=== PATIENT | male | born 1930 | race Caucasian/White ===

== ENCOUNTER 2016-10-17 09:28 | Inpatient (IN) | payer MEDICARE, OTHER ==
[2016-10-17 09:54] LABS: BASOPHILS % 0.2 (0.0-1.5); EOSINOPHILS % 1.4 % (0.0-6.8); LYMPHOCYTES # 1.8 # k/uL (0.6-4.0); MEAN CORPUSCULAR HEMOGLOBIN 31.4 pg (28.0-34.0); MONOCYTES # 0.7 # k/uL (0.0-0.9); MONOCYTES % 6.5 % (0.0-11.0); NEUTROPHILS # 7.5 # k/uL (1.4-7.7)
--- NOTE | 2016-10-17 09:58 | ED Physician Documentation ---
General Adult - HISTORIAN Historian: other - HPI Chief Complaint: General Adult Onset: hours (this AM) Timing: still present Severity: mild Further Comments: yes (86yo white male who is a patient at [facility] Dementia unit. Over the last 12 hours patient has started to have some increasing aggitation, fever and decreased SAo2. into the mid 80s) Last known Well Code/Unknown Code: Known (ye) - ROS CONST: fever CVS/RESP: shortness of breath, cough (mild). denies: chest pain - PAST HX Past History: other (alzheimers dementia) Immunizations: influenza, pneumovax Allergies/Adverse Reactions: Allergies Allergy/AdvReac Type Severity Reaction Status Date / Time No Known Allergies Allergy Verified 11/29/15 09:51 Home Medications: Ambulatory Orders Medication Instructions Recorded Aspirin [Elizabet] 81 mg PO DAILY 10/29/15 Furosemide [Lasix] 20 mg PO DAILY 10/29/15 Memantine HCl [Memantine HCl] 10 mg PO BID 10/29/15 Multivitamin [Zoo Chews] 1 each PO DAILY 10/29/15 Bisacodyl [Women's Gentle Laxative] 5 mg PO BID PRN 11/28/15 Dorzolamide HCl/Timolol Maleat 1 each TP BID 11/28/15 [Dorzolamide-Timolol Eye Drops] Magnesium Hydroxide [Milk of 30 ml PO D PRN 11/28/15 Magnesia] Acetaminophen [Tylenol] 650 mg PO Q4 PRN 10/17/16 Buspirone HCl [Buspar] 10 mg PO BID 10/17/16 Latanoprost [Xalatan] 1 drop OP AM 10/17/16 Mag Hydrox/Al Hydrox/Simeth 30 ml PO D PRN 10/17/16 [Mylanta] Melatonin [Melatin] 3 mg PO HS 10/17/16 - SOCIAL HX Smoking History: non-smoker Alcohol Use: none Drug Use: none - FAMILY HX Family History: Yes - VITAL SIGNS Vital Signs: Vital Signs Temp Pulse Resp BP Pulse Ox 113/46 11/29/15 10:36 - REVIEWED ASSESSMENTS Nursing Assessment Reviewed: Yes Vitals Reviewed: Yes ED Results Lab/Radiology - Orders Orders: ED Orders Category Date Time Status Assess pulse oximetry Q4H Care 10/17/16 09:[address] Saline Lock/IV Now Care 10/17/16 09:43 Ordered CHEST P.A.&LAT 2 VIEWS [RAD] Routine Exams 10/17/16 Ordered CBC/PLATELET/DIFF Routine Lab 10/17/16 Ordered CMP Routine Lab 10/17/16 Ordered URINALYSIS Routine Lab 10/17/16 Ordered Oxygen Daily Oxygen 10/17/16 09:45 Ordered General Adult Physical Exam - PHYSICAL EXAM GENERAL APPEARANCE: mild distress EENT: ENT inspection normal, pharynx normal, no signs of dehydration NECK: normal inspection RESPIRATORY: no resp distress, rales (bilaterally). No: wheezes, rhonchi CVS: reg rate & rhythm, heart sounds normal, equal pulses, no murmur ABDOMEN: soft, no organomegaly, normal bowel sounds, no abdominal bruit SKIN: other (open wounds to the lower extremities bilat) EXTREMITIES: edema NEURO: motor nml, sensation nml. No: oriented X3, CN's nml as tested, mood/ affect nml, cognition normal Discharge Clincal Impression: Congestive heart failure (CHF), Urinary tract infection, Open wound of knee, leg (except thigh), and ankle Home Medications: Ambulatory Orders Aspirin [Elizabet] 81 mg PO DAILY 10/29/15 Furosemide [Lasix] 20 mg PO DAILY 10/29/15 Memantine HCl [Memantine HCl] 10 mg PO BID 10/29/15 Multivitamin [Zoo Chews] 1 each PO DAILY 10/29/15 Bisacodyl [Women's Gentle Laxative] 5 mg PO BID PRN 11/28/15 Dorzolamide HCl/Timolol Maleat [Dorzolamide-Timolol Eye Drops] 1 each TP BID Magnesium Hydroxide [Milk of Magnesia] 30 ml PO D PRN 11/28/15 Acetaminophen [Tylenol] 650 mg PO Q4 PRN 10/17/16 Buspirone HCl [Buspar] 10 mg PO BID 10/17/16 Latanoprost [Xalatan] 1 drop OP AM 10/17/16 Mag Hydrox/Al Hydrox/Simeth [Mylanta] 30 ml PO D PRN 10/17/16 Melatonin [Melatin] 3 mg PO HS 10/17/16 Condition: Fair Disposition: 09 ADMITTED INPATIENT Decision to Admit: [id number] Date of Decison to Admit: 10/17/16 Decision Time: 11:23
[2016-10-17 10:11] LABS: eGFR (African) > 60; eGFR (Non-African) > 60
[2016-10-17] MEDS ORDERED: LORazepam 2 MG/ML VIAL IVP ONE (10:23)
[2016-10-17] MEDS ORDERED: LORazepam 2 MG/ML VIAL ONE (10:24)
[2016-10-17 11:10] LABS: APPEARANCE,URINE Cloudy (CLEAR); COLOR,URINE Yellow (YELLOW); OCCULT BLOOD,URINE 1+ (NEGATIVE); PH URINE 6.5 (5.0 - 8.0); UROBILINOGEN URINE >=8.0 Eu (0.2-1.0)
[2016-10-17] MEDS ORDERED: ACETAMINOPHEN 325 MG TABLET PO PRN (11:58)
[2016-10-17] MEDS ORDERED: MAG HYDROX/AL HYDROX/SIMETH 30 ML UDC PO PRN (11:58)
[2016-10-17] MEDS ORDERED: MAGNESIUM HYDROXIDE 400 MG/5 ML 30ML UDC PO PRN (11:58)
[2016-10-17] MEDS ORDERED: BISACODYL 5 MG TABLET.DR PO PRN (11:58)
[2016-10-17] MEDS ORDERED: FUROSEMIDE 40 MG/4 ML VIAL IVP ONE (12:06)
[2016-10-17] MEDS ORDERED: CIPROFLOXACIN/D5W 200 ML IV ONE (13:45)
[2016-10-17] MEDS ORDERED: SALINE FLUSH 10 ML DISP.SYRIN IVF ONE (13:48)
[2016-10-17] MEDS: CIPROFLOXACIN/D5W 400 MG in PREMIX BAG 1 BAG IV SCH (13:53)
[2016-10-17] MEDS: ENOXAPARIN SODIUM 30 MG/0.3 ML DISP.SYRIN SQ SCH (13:59)
--- NOTE | 2016-10-17 14:12 | Diagnostic Imaging Report ---
[facility] [address] [facility].[address] [address] Report Submission Date: Oct 17, 2016 11:59:30 AM WO[employer]EN [employer] HARD[employer] INST[employer]ER Patient Study Name: CINDY WORTHINGTON Date: Oct 17, 2016 10:01:18 AM [employer] INSTALLER Modality Type: CR Gender: M Description: CHEST : 31 Institution: [facility] Physician: KATYA RILEY Chest - one-view Clinical history: Chest congestion. Findings: Examination of the chest single portable AP view 10/17/2016 1001 hours with comparison to examination of 11/28/2015 demonstrates pulmonary vascular congestion with perivascular and peribronchial cuffing. Cardiac silhouette is enlarged and the aorta is atherosclerotic. There is old healed right clavicular fracture. Impression: 1. Pulmonary vascular congestion. 2. Cardiomegaly and aortic atherosclerosis. Electronically signed on Oct 17, 2016 11:59:30 AM [employer] HARDWARE INSTALLER by: Nakul GANDHI
[2016-10-17 14:51] VITALS: BMI 24.4
[2016-10-17] MEDS: FUROSEMIDE 40 MG/4 ML VIAL IVP SCH (15:17)
[2016-10-17] MEDS: DORZOLAMINE HCL/TIMOLOL MALEAT OPTH DROP OP SCH (20:03)
[2016-10-17] MEDS: MELATONIN 3 MG TABLET PO SCH (20:03)
[2016-10-17] MEDS: MEMANTINE HCL 10 MG TABLET PO SCH (20:03)
[2016-10-18] MEDS ORDERED: SALINE FLUSH 10 ML DISP.SYRIN IVF ONE ×3 (04:41→16:12)
[2016-10-18] MEDS: FUROSEMIDE 40 MG/4 ML VIAL IVP SCH ×2 (06:28→16:00)
[2016-10-18 06:33] LABS: BASOPHILS % 0.3 (0.0-1.5); EOSINOPHILS % 0.8 % (0.0-6.8); LYMPHOCYTES # 1.7 # k/uL (0.6-4.0); MEAN CORPUSCULAR HEMOGLOBIN 30.8 pg (28.0-34.0); MONOCYTES # 0.5 # k/uL (0.0-0.9); MONOCYTES % 4.6 % (0.0-11.0)
[2016-10-18 06:50] LABS: eGFR (African) > 60; eGFR (Non-African) > 60
[2016-10-18] MEDS ORDERED: LORazepam 0.5 MG TABLET PO PRN (09:02)
--- NOTE | 2016-10-18 09:13 | History and Physical Report ---
History of Present Illnes - History of Present Illness Reason for Visit: Fever, hypoxia History of Present Illness: 86yo white male who is a patient at [facility] Dementia unit. Over the last 12 hours patient has started to have some increasing aggitation, fever and decreased SAo2. into the mid 80s. Patient was brought to the ED for further evaluation and treatment. Patient was found to have some congestive heart failure and a UTI. He is admitted for further evaluation and treatment. 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 negative: Cough, Pleuritic Pain, Sputum Cardiovascular: negative: Chest Pain, Palpitations Gastrointestinal: negative: Nausea, Vomiting, Abdominal Pain, Diarrhea, Constipation, Melena, Hematochezia Genitourinary: Incontinence. negative: Dysuria, Frequency, Hematuria Musculoskeletal: Back Pain Skin: Other (open wounds legs). negative: Rash Neurological: Confusion. negative: Weakness, Numbness, Incoordination - Medications/Allergies Allergies/Adverse Reactions: Allergies Allergy/AdvReac Type Severity Reaction Status Date / Time No Known Allergies Allergy Verified 11/29/15 09:51 Home Medications: Home Medications Acetaminophen [Tylenol] 650 mg PO Q4 PRN 10/17/16 Buspirone HCl [Buspar] 10 mg PO BID 10/17/16 Latanoprost [Xalatan] 1 drop OP AM 10/17/16 Mag Hydrox/Al Hydrox/Simeth [Mylanta] 30 ml PO D PRN 10/17/16 Melatonin [Melatin] 3 mg PO HS 10/17/16 Current Inpatient Medications: Current Inpatient Medications Acetaminophen (Tylenol) 650 mg PO Q4 PRN PRN Reason: Fever > 102 Al Hydrox/Mg Hydrox/Simethicone (Mylanta) 30 ml PO D PRN PRN Reason: indigestion Al Hydroxide/Mg Hydroxide (Milk Of Magnesia) 2,400 mg PO D PRN PRN Reason: Constipation Aspirin (Aspirin) 81 mg PO DAILY [facility] Bisacodyl (Dulcolax) 5 mg PO BID PRN PRN Reason: Constipation Dorzolamide/Timolol (Cosopt Eye Drops) 1 drop OP BID [facility] Last Admin: 10/17/16 20:03 Dose: 1 drop Enoxaparin Sodium (Lovenox) 30 mg SQ QD [facility] Stop: 10/30/16 12:01 Last Admin: 10/17/16 13:59 Dose: 30 mg Furosemide (Lasix) 40 mg IVP 714 [facility] Last Admin: 10/18/16 06:28 Dose: 40 mg Ciprofloxacin/Dextrose 400 mg/ (PREMIX BAG) 200 mls @ 200 mls/hr IV QD [facility] Last Admin: 10/17/16 13:53 Dose: 200 mls/hr Latanoprost (Xalatan) 1 drop OP AM [facility] Lorazepam (Ativan) 0.5 mg PO Q4H PRN PRN Reason: Anxiety Melatonin (Melatonin) 3 mg PO HS [facility] Last Admin: 10/17/16 20:03 Dose: 3 mg Memantine (Namenda) 10 mg PO BID [facility] Last Admin: 10/17/16 20:03 Dose: 10 mg Multivitamins (Tab-A-Wilfrido) 1 each PO DAILY [facility] Potassium Chloride (Klor-Con M20) 20 meq PO BID [facility] Exam - Exam Vital Signs: Vital Signs (72 hours) 10/17/16 10/17/16 10/17/16 12:12 12:15 13:44 Temperature 97.7 F 97.7 F Pulse Rate [ 93 H Left Pulse ox] Pulse Rate [ 109 H Right] Respiratory 18 28 H Rate Blood Pressure 157/78 [Left Arm] Blood Pressure 175/56 [Right Arm] O2 Sat by Pulse 93 90 L 92 Oximetry 10/17/16 10/17/16 10/17/16 14:00 17:00 18:00 Temperature 100.9 F H 100.4 F H Pulse Rate [ Left Pulse ox] Pulse Rate [ 114 H 114 H Right] Respiratory 28 H 28 H Rate Blood Pressure [Left Arm] Blood Pressure 140/82 141/71 [Right Arm] O2 Sat by Pulse 91 L 91 L 92 Oximetry 10/17/16 10/17/16 10/17/16 20:00 21:38 22:00 Temperature 99.6 F Pulse Rate [ 91 H 90 Left Pulse ox] Pulse Rate [ Right] Respiratory 20 Rate Blood Pressure [Left Arm] Blood Pressure 150/70 [Right Arm] O2 Sat by Pulse 91 L 90 L Oximetry 10/18/16 10/18/16 10/18/16 02:00 05:49 06:00 Temperature 99.0 F 98.8 F Pulse Rate [ 94 H 102 H Left Pulse ox] Pulse Rate [ Right] Respiratory Rate Blood Pressure [Left Arm] Blood Pressure 146/70 133/64 [Right Arm] O2 Sat by Pulse 92 91 L 92 Oximetry General: Mild distress. No: Alert, Oriented to Person, Oriented to Place, Oriented to Time, Cooperative HEENT: Atraumatic, Mouth Mucous membr. moist/[place], Decreased Hearing Acuity. No : Pharyngeal Erythema, Tonsillar Exudate Neck: Normal Range of Motion. No: Stridor, Rigidity, Lymphadenopathy Carotids: WNL Thyroid: WNL Lungs: Respiratory Distress, Wheezes (bilaterally), Rales (in bases) Cardiovascular: Regular rate, Normal S1, Normal S2, No murmurs. No: Gallops, Rubs Abdomen: Normal bowel sounds, Soft, No tenderness, No hepatospenomegaly, No masses. No: Distended Integumentary: Normal, [place], Warm, Dry, Other (superficial ulceration to the legs bilat ) Extremities: No clubbing, No cyanosis, Normal pulses, Other (some mild swelling to the legs bialterally) Neurological: Strength Equal Bilat, Normal tone, Sensation intact, Cranial nerves 3-12 NL, Reflexes 2+ Psych/Mental Status: No: Mental status NL, Mood NL, Appropriate Affect, Intact Judgment - Laboratory Results Laboratory Results: Laboratory Results 10/18/16 10/18/16 06:15 06:15 WBC 11.50 RBC 4.58 Hgb 14.1 Hct 43.5 MCV 95.1 MCH 30.8 MCHC 32.4 RDW 12.7 Plt Count 264 Neut % (Auto) 78.1 Lymph % (Auto) 14.7 L [place] % (Auto) 4.6 Eos % (Auto) 0.8 Baso % (Auto) 0.3 Neut # 9.0 H Lymph # 1.7 [place] # 0.5 Eos # 0.1 Baso # 0.0 Reactive Lymphs % 1.5 Reactive Lymphs # 0.2 Sodium 140 Potassium 3.0 L Chloride 96 L Carbon Dioxide 32 BUN 17 Creatinine 0.7 Estimated Creat Clear 91 Est GFR ( Amer) > 60 Est GFR (Non-Af Amer) > 60 Glucose 143 H Calcium 9.4 Total Bilirubin 1.5 H AST 30 ALT 17 Alkaline Phosphatase 132 H Total Protein 7.3 Albumin 3.9 Assessment/Plan - Assessment/Plan (1) Congestive heart failure Status: Acute Assessment: Will start IV Lasix and monitor respiratory status, weight, get serial troponins (2) Elevated troponin Status: Acute Assessment: Possible AMI, no EKG changes (3) Urinary tract infection Status: Acute Assessment: Start IV antibiotic therapy VTE Assessment - RISK FACTOR SCORE VTE RISK FACTOR SCORES: AGE OVER 60 YEARS, ANTICIPATED BED CONFINEMENT OR IMMOBILIZATION > 24 HOURS, CONGESTIVE HEART FAILURE OR MYOCARDIAL INFARCTION - RISK VTE HIGH RISK: SCORE OF 3-4 (RISK PROXIMAL DVT 4-8%) PROPHYLAXIS NEEDED
--- NOTE | 2016-10-18 09:13 | Inpatient Progress Note ---
Subjective - Required Recertification Statement I anticipate X number of days because-include discharge plan: 2 days - Review of Systems Events since last encounter: Patient seems to be more combative today. Still having some mild respiratory distress but is improved. Pt has had good diuresis. Pulmonary: Dyspnea, Cough Gastrointestinal: Denies: Nausea, Vomiting Genitourinary: Denies: Dysuria, Frequency Objective - Exam Vitals and I&O: Vital Signs Temp 98.8 F 10/18/16 06:00 Pulse 102 H 10/18/16 06:00 Resp 20 10/17/16 20:00 BP 133/64 10/18/16 06:00 Pulse Ox 92 10/18/16 06:00 Intake & Output 10/17/16 10/17/16 10/18/16 11:59 23:59 11:59 Intake Total 200 Balance 200 Weight 83.915 kg Intake: IV 200 Left AC Space 200 Other: Voiding Method Diaper # Voids 1 3 # Bowel Movements 1 General: Alert. No: Oriented to Person, Oriented to Place, Oriented to Time, Cooperative Neck: No: Supple, No JVD Lungs: Normal air movement, Wheezes (mild bsilar). No: Rales, Rhonchi Cardiovascular: Regular rate, Normal S1, Normal S2, No murmurs, Other Abdomen: Normal bowel sounds, Soft, No tenderness, No hepatospenomegaly - Results Results: Laboratory Results WBC 11.50 K/ul (4.00-12.00) 10/18/16 06:15 RBC 4.58 M/ul (3.90-5.20) 10/18/16 06:15 Hgb 14.1 g/dL (12.0-18.0) 10/18/16 06:15 Hct 43.5 % (37.0-53.0) 10/18/16 06:15 MCV 95.1 fl (80.0-100.0) 10/18/16 06:15 MCH 30.8 pg (28.0-34.0) 10/18/16 06:15 MCHC 32.4 g/dL (30.0-36.0) 10/18/16 06:15 RDW 12.7 % (11.3-14.3) 10/18/16 06:15 Plt Count 264 K/mm3 (130-400) 10/18/16 06:15 Neut % (Auto) 78.1 % (39.0-79.0) 10/18/16 06:15 Lymph % (Auto) 14.7 % (16.0-50.0) L 10/18/16 06:15 [place] % (Auto) 4.6 % (0.0-11.0) 10/18/16 06:15 Eos % (Auto) 0.8 % (0.0-6.8) 10/18/16 06:15 Baso % (Auto) 0.3 (0.0-1.5) 10/18/16 06:15 Neut # 9.0 # k/uL (1.4-7.7) H 10/18/16 06:15 Lymph # 1.7 # k/uL (0.6-4.0) 10/18/16 06:15 [place] # 0.5 # k/uL (0.0-0.9) 10/18/16 06:15 Eos # 0.1 # k/uL (0.0-0.6) 10/18/16 06:15 Baso # 0.0 # k/uL (0.0-0.5) 10/18/16 06:15 Reactive Lymphs % 1.5 % (0.0-5.0) 10/18/16 06:15 Reactive Lymphs # 0.2 # k/uL (0.0-0.8) 10/18/16 06:15 Sodium 140 mmol/L (136-145) 10/18/16 06:15 Potassium 3.0 mmol/L (3.5-5.0) L 10/18/16 06:15 Chloride 96 mmol/L (98-110) L 10/18/16 06:15 Carbon Dioxide 32 mmol/L (20-32) 10/18/16 06:15 BUN 17 mg/dL (10-26) 10/18/16 06:15 Creatinine 0.7 mg/dL (0.4-1.5) 10/18/16 06:15 Estimated Creat Clear 91 10/18/16 06:15 Est GFR ( Amer) > 60 (60-) 10/18/16 06:15 Est GFR (Non-Af Amer) > 60 (60-) 10/18/16 06:15 Glucose 143 mg/dL (70-99) H 10/18/16 06:15 Calcium 9.4 mg/dL (8.5-10.5) 10/18/16 06:15 Total Bilirubin 1.5 mg/dL (0.2-1.2) H 10/18/16 06:15 AST 30 U/L (0-41) 10/18/16 06:15 ALT 17 U/L (0-45) 10/18/16 06:15 Alkaline Phosphatase 132 U/L (46-116) H 10/18/16 06:15 Troponin I 0.25 ng/mL (0.00-0.06) H 10/17/16 09:50 NT-Pro-B Natriuret Pep 1962.3 pg/mL (15.0-450.0) H 10/17/16 09:50 Total Protein 7.3 g/dL (6.0-8.5) 10/18/16 06:15 Albumin 3.9 g/dL (3.0-5.5) 10/18/16 06:15 Urine Color Yellow (YELLOW) 10/17/16 11:05 Urine Appearance Cloudy (CLEAR) 10/17/16 11:05 Urine pH 6.5 (5.0 - 8.0) 10/17/16 11:05 Ur Specific [place] 1.020 (1.010-1.030) 10/17/16 11:05 Urine Protein 1+ mg/dL (NEGATIVE) H 10/17/16 11:05 Urine Ketones Trace mg/dL (NEGATIVE) 10/17/16 11:05 Urine Occult Blood 1+ (NEGATIVE) H 10/17/16 11:05 Urine Nitrite Negative (NEGATIVE) 10/17/16 11:05 Urine Bilirubin 1+ (NEGATIVE) H 10/17/16 11:05 Urine Urobilinogen >=8.0 Eu (0.2-1.0) H 10/17/16 11:05 Ur Leukocyte Esterase 2+ (NEGATIVE) H 10/17/16 11:05 Urine RBC 0-2 (0-2 HPF) 10/17/16 11:05 Urine WBC 25-50 (0-5 HPF) H 10/17/16 11:05 Ur Squamous Epith Cells Few (NEG-FEW) 10/17/16 11:05 Urine Bacteria Few (NEGATIVE) H 10/17/16 11:05 Urine Mucus Present (NEGATIVE) H 10/17/16 11:05 Urine Glucose Negative mg/dL (NEGATIVE) 10/17/16 11:05 Influenza Type A Ag Negative (NEGATIVE) 10/17/16 10:50 Influenza Type B Ag Negative (NEGATIVE) 10/17/16 10:50 Assessment/Plan - Assessment/Plan (1) Congestive heart failure (CHF) Status: Acute Assessment: Appears improved, will continue with iV lasix at this time (2) Elevated troponin Status: Acute Assessment: Will recheck this AM, heart monitor stable (3) Open wound of knee, leg (except thigh), and ankle Status: Acute Assessment: Continue with dressing (4) Urinary tract infection Status: Acute Assessment: awaiting cultur reports, will continue with Cipro (5) Hypokalemia Status: Acute Assessment: Will start supplemental potassium
[2016-10-18] MEDS: MULTIVITAMIN 1 EACH TABLET PO SCH (09:24)
[2016-10-18] MEDS: ASPIRIN 81 MG CHEW TAB PO SCH (09:24)
[2016-10-18] MEDS: DORZOLAMINE HCL/TIMOLOL MALEAT OPTH DROP OP SCH ×2 (09:24→20:29)
[2016-10-18] MEDS: MEMANTINE HCL 10 MG TABLET PO SCH ×2 (09:24→20:23)
[2016-10-18] MEDS: LATANOPROST 0.005% OPTH DROP OP SCH (09:24)
[2016-10-18] MEDS: POTASSIUM CHLORIDE 20 MEQ TABLET.ER PO SCH ×2 (10:31→20:23)
[2016-10-18] MEDS ORDERED: CIPROFLOXACIN/D5W 200 ML IV ONE (11:40)
[2016-10-18] MEDS: ENOXAPARIN SODIUM 30 MG/0.3 ML DISP.SYRIN SQ SCH (12:19)
[2016-10-18] MEDS: CIPROFLOXACIN/D5W 400 MG in PREMIX BAG 1 BAG IV SCH (12:19)
[2016-10-18] MEDS: MELATONIN 3 MG TABLET PO SCH (20:23)
[2016-10-19] MEDS ORDERED: SALINE FLUSH 10 ML DISP.SYRIN IVF ONE ×4 (05:51→15:55)
[2016-10-19] MEDS: POTASSIUM CHLORIDE 20 MEQ TABLET.ER PO SCH ×3 (06:51→19:39)
[2016-10-19] MEDS: FUROSEMIDE 40 MG/4 ML VIAL IVP SCH ×2 (06:52→13:40)
--- NOTE | 2016-10-19 07:36 | Inpatient Progress Note ---
Subjective - Required Recertification Statement I anticipate X number of days because-include discharge plan: 1 - Review of Systems Events since last encounter: Patient seems to be doing better today. Breathing is better. Patient was more combative yesterday but was better last noc. Mental status seems to be at baseline. General: Denies: Chills, Night Sweats Pulmonary: Denies: Dyspnea, Cough, Pleuritic Chest Pain Cardiovascular: Denies: Palpitations Objective - Exam Vitals and I&O: Vital Signs Temp 97 F L 10/19/16 06:00 Pulse 95 H 10/19/16 06:00 Resp 18 10/19/16 06:00 BP 130/71 10/19/16 06:00 Pulse Ox 94 10/19/16 06:00 Intake & Output 10/18/16 10/18/16 10/19/16 11:59 23:59 11:59 Intake Total 320 500 Balance 320 500 Weight 83.915 kg Intake: Oral 320 500 Other: Voiding Method Diaper Diaper # Voids 3 2 1 General: No acute distress. No: Alert, Oriented to Person, Oriented to Place, Oriented to Time Neck: Supple, No JVD, No LAD Lungs: Clear to auscultation, Normal air movement, Speaks full Sentences, Respiratory Distress. No: Wheezes, Rales, Rhonchi Cardiovascular: Regular rate, Normal S1, Normal S2, No murmurs. No: Gallops Abdomen: Normal bowel sounds, Soft, No tenderness, No hepatospenomegaly Extremities: No clubbing, Other (wounds are improved some) Skin: Normal, [place], Warm, Dry, Other (leg lesions look better) Neurological: Strength Equal Bilat, Normal tone Psych/Mental Status: No: Mental status NL, Mood NL, Intact Judgment - Results Results: Laboratory Results WBC 11.50 K/ul (4.00-12.00) 10/18/16 06:15 RBC 4.58 M/ul (3.90-5.20) 10/18/16 06:15 Hgb 14.1 g/dL (12.0-18.0) 10/18/16 06:15 Hct 43.5 % (37.0-53.0) 10/18/16 06:15 MCV 95.1 fl (80.0-100.0) 10/18/16 06:15 MCH 30.8 pg (28.0-34.0) 10/18/16 06:15 MCHC 32.4 g/dL (30.0-36.0) 10/18/16 06:15 RDW 12.7 % (11.3-14.3) 10/18/16 06:15 Plt Count 264 K/mm3 (130-400) 10/18/16 06:15 Neut % (Auto) 78.1 % (39.0-79.0) 10/18/16 06:15 Lymph % (Auto) 14.7 % (16.0-50.0) L 10/18/16 06:15 [place] % (Auto) 4.6 % (0.0-11.0) 10/18/16 06:15 Eos % (Auto) 0.8 % (0.0-6.8) 10/18/16 06:15 Baso % (Auto) 0.3 (0.0-1.5) 10/18/16 06:15 Neut # 9.0 # k/uL (1.4-7.7) H 10/18/16 06:15 Lymph # 1.7 # k/uL (0.6-4.0) 10/18/16 06:15 [place] # 0.5 # k/uL (0.0-0.9) 10/18/16 06:15 Eos # 0.1 # k/uL (0.0-0.6) 10/18/16 06:15 Baso # 0.0 # k/uL (0.0-0.5) 10/18/16 06:15 Reactive Lymphs % 1.5 % (0.0-5.0) 10/18/16 06:15 Reactive Lymphs # 0.2 # k/uL (0.0-0.8) 10/18/16 06:15 Sodium 140 mmol/L (136-145) 10/18/16 06:15 Potassium 3.0 mmol/L (3.5-5.0) L 10/18/16 06:15 Chloride 96 mmol/L (98-110) L 10/18/16 06:15 Carbon Dioxide 32 mmol/L (20-32) 10/18/16 06:15 BUN 17 mg/dL (10-26) 10/18/16 06:15 Creatinine 0.7 mg/dL (0.4-1.5) 10/18/16 06:15 Estimated Creat Clear 91 10/18/16 06:15 Est GFR ( Amer) > 60 (60-) 10/18/16 06:15 Est GFR (Non-Af Amer) > 60 (60-) 10/18/16 06:15 Glucose 143 mg/dL (70-99) H 10/18/16 06:15 Calcium 9.4 mg/dL (8.5-10.5) 10/18/16 06:15 Total Bilirubin 1.5 mg/dL (0.2-1.2) H 10/18/16 06:15 AST 30 U/L (0-41) 10/18/16 06:15 ALT 17 U/L (0-45) 10/18/16 06:15 Alkaline Phosphatase 132 U/L (46-116) H 10/18/16 06:15 Troponin I 0.15 ng/mL (0.00-0.06) H 10/18/16 06:15 NT-Pro-B Natriuret Pep 1962.3 pg/mL (15.0-450.0) H 10/17/16 09:50 Total Protein 7.3 g/dL (6.0-8.5) 10/18/16 06:15 Albumin 3.9 g/dL (3.0-5.5) 10/18/16 06:15 Urine Color Yellow (YELLOW) 10/17/16 11:05 Urine Appearance Cloudy (CLEAR) 10/17/16 11:05 Urine pH 6.5 (5.0 - 8.0) 10/17/16 11:05 Ur Specific [place] 1.020 (1.010-1.030) 10/17/16 11:05 Urine Protein 1+ mg/dL (NEGATIVE) H 10/17/16 11:05 Urine Ketones Trace mg/dL (NEGATIVE) 10/17/16 11:05 Urine Occult Blood 1+ (NEGATIVE) H 10/17/16 11:05 Urine Nitrite Negative (NEGATIVE) 10/17/16 11:05 Urine Bilirubin 1+ (NEGATIVE) H 10/17/16 11:05 Urine Urobilinogen >=8.0 Eu (0.2-1.0) H 10/17/16 11:05 Ur Leukocyte Esterase 2+ (NEGATIVE) H 10/17/16 11:05 Urine RBC 0-2 (0-2 HPF) 10/17/16 11:05 Urine WBC 25-50 (0-5 HPF) H 10/17/16 11:05 Ur Squamous Epith Cells Few (NEG-FEW) 10/17/16 11:05 Urine Bacteria Few (NEGATIVE) H 10/17/16 11:05 Urine Mucus Present (NEGATIVE) H 10/17/16 11:05 Urine Glucose Negative mg/dL (NEGATIVE) 10/17/16 11:05 Influenza Type A Ag Negative (NEGATIVE) 10/17/16 10:50 Influenza Type B Ag Negative (NEGATIVE) 10/17/16 10:50 Assessment/Plan - Assessment/Plan (1) Congestive heart failure Status: Acute Assessment: Appears to be doing better today, lungs clearer, will get repeat chest x-ray. (2) Urinary tract infection Status: Acute Assessment: under treatment with cipro, awaiting culture report (3) Elevated troponin Status: Acute Assessment: Improved today, patient may have had a small AMI
[2016-10-19 08:17] LABS: BASOPHILS % 0.2 (0.0-1.5); EOSINOPHILS % 1.9 % (0.0-6.8); LYMPHOCYTES # 1.5 # k/uL (0.6-4.0); MEAN CORPUSCULAR HEMOGLOBIN 31.1 pg (28.0-34.0); MONOCYTES # 0.6 # k/uL (0.0-0.9); MONOCYTES % 4.5 % (0.0-11.0); NEUTROPHILS # 10.3 # k/uL (1.4-7.7)
[2016-10-19 08:31] LABS: eGFR (African) > 60; eGFR (Non-African) > 60
[2016-10-19] MEDS: MULTIVITAMIN 1 EACH TABLET PO SCH (09:00)
[2016-10-19] MEDS: MEMANTINE HCL 10 MG TABLET PO SCH ×2 (09:00→19:39)
[2016-10-19] MEDS: DORZOLAMINE HCL/TIMOLOL MALEAT OPTH DROP OP SCH ×2 (09:00→19:40)
[2016-10-19] MEDS: LATANOPROST 0.005% OPTH DROP OP SCH (09:01)
[2016-10-19] MEDS: ASPIRIN 81 MG CHEW TAB PO SCH (09:01)
[2016-10-19] MEDS: LORazepam 1 MG TABLET PO SCH ×7 (09:02→23:58)
[2016-10-19] MEDS ORDERED: CIPROFLOXACIN/D5W 200 ML IV ONE (12:15)
[2016-10-19] MEDS: ENOXAPARIN SODIUM 30 MG/0.3 ML DISP.SYRIN SQ SCH (12:20)
[2016-10-19] MEDS: CIPROFLOXACIN/D5W 400 MG in PREMIX BAG 1 BAG IV SCH (12:20)
[2016-10-19] MEDS ORDERED: AZITHROMYCIN 500 MG in 0.9 % SODIUM CHLORIDE 250 ML IV SCH (13:00)
[2016-10-19] MEDS ORDERED: 0.9 % SODIUM CHLORIDE 250 ML IV ONE (13:20)
[2016-10-19] MEDS ORDERED: AZITHROMYCIN 500 MG VIAL IV ONE (13:20)
[2016-10-19] MEDS: MELATONIN 3 MG TABLET PO SCH (19:39)
--- NOTE | 2016-10-19 19:39 | Diagnostic Imaging Report ---
[facility] [id number] [facility] [address], [place]. [address] Report Submission Date: Oct 19, 2016 9:49:07 AM RECEPTIONIST NURSE Patient Study Name: CINDY WORTHINGTON Date: Oct 19, 2016 8:12:24 AM RECEPTIONIST NURSE Modality Type: CR Gender: M Description: CHEST : 32 Institution: [facility] Physician S[facility]/MED SURG Portable upright radiograph of the chest COMPARISON: Dyspnea congestive heart failure 2 days earlier FINDINGS: The right upper lobe infiltrate is increased. The pulmonary vascular congestion and pulmonary edema have improved. Cardiomegaly is about the same. The bony thorax is stable. IMPRESSION: Improved congestive heart failure and pulmonary edema More focal consolidation involving the right upper lobe Electronically signed on Oct 19, 2016 9:49:07 AM RECEPTIONIST NURSE by: Slava GANDHI
[2016-10-20] MEDS: LORazepam 1 MG TABLET PO SCH ×3 (02:43→08:48)
[2016-10-20] MEDS ORDERED: SALINE FLUSH 10 ML DISP.SYRIN IVF ONE (04:46)
[2016-10-20] MEDS: FUROSEMIDE 40 MG/4 ML VIAL IVP SCH (06:29)
[2016-10-20] MEDS: POTASSIUM CHLORIDE 20 MEQ TABLET.ER PO SCH (08:48)
[2016-10-20] MEDS: MULTIVITAMIN 1 EACH TABLET PO SCH (08:48)
[2016-10-20] MEDS: DORZOLAMINE HCL/TIMOLOL MALEAT OPTH DROP OP SCH (08:49)
[2016-10-20] MEDS: MEMANTINE HCL 10 MG TABLET PO SCH (08:49)
[2016-10-20] MEDS: ASPIRIN 81 MG CHEW TAB PO SCH (08:49)
[2016-10-20] MEDS: LATANOPROST 0.005% OPTH DROP OP SCH (08:49)
[2016-10-20] MEDS ORDERED: LEVOFLOXACIN 500 MG TABLET PO SCH (09:00)
[2016-10-20 09:23] VITALS: BP 136/59
[2016-10-20 09:52] LABS: BASOPHILS % 0.2 (0.0-1.5); EOSINOPHILS % 3.1 % (0.0-6.8); LYMPHOCYTES # 1.6 # k/uL (0.6-4.0); MEAN CORPUSCULAR HEMOGLOBIN 30.3 pg (28.0-34.0); MONOCYTES # 0.5 # k/uL (0.0-0.9); MONOCYTES % 3.9 % (0.0-11.0); NEUTROPHILS # 9.1 # k/uL (1.4-7.7)
[2016-10-20] MEDS: ENOXAPARIN SODIUM 30 MG/0.3 ML DISP.SYRIN SQ SCH (11:24)
--- NOTE | 2016-10-21 17:00 | Discharge Summary ---
Discharge Summary - Discharge Sumary History of Present Illness: 86yo white male who is a patient at [facility] Dementia unit. Over the last 12 hours patient has started to have some increasing aggitation, fever and decreased SAo2. into the mid 80s. Patient was brought to the ED for further evaluation and treatment. Patient was found to have some congestive heart failure and a UTI. He is admitted for further evaluation and treatment. Home Medications: Ambulatory Orders Medication Instructions Recorded Aspirin [Elizabet] 81 mg PO DAILY 10/29/15 Memantine HCl 10 mg PO BID 10/29/15 Multivitamin [Zoo Chews] 1 each PO DAILY 10/29/15 Bisacodyl [Women's Gentle Laxative] 5 mg PO BID PRN 11/28/15 Dorzolamide HCl/Timolol Maleat 1 each TP BID 11/28/15 [Dorzolamide-Timolol Eye Drops] Magnesium Hydroxide [Milk of 30 ml PO D PRN 11/28/15 Magnesia] Acetaminophen [Tylenol] 650 mg PO Q4 PRN 10/17/16 Buspirone HCl [Buspar] 10 mg PO BID 10/17/16 Latanoprost [Xalatan] 1 drop OP AM 10/17/16 Mag Hydrox/Al Hydrox/Simeth 30 ml PO D PRN 10/17/16 [Mylanta] Melatonin [Melatin] 3 mg PO HS 10/17/16 Azithromycin [Zithromax] 250 mg PO DAILY #4 tablet 10/20/16 Furosemide [Lasix] 40 mg PO DAILY #0 10/20/16 Levofloxacin [Levaquin] 500 mg PO D #7 tablet 10/20/16 Potassium Chloride [Klor-Con M20] 20 meq PO D tablet.er 10/20/16 Consultations this Visit: None Procedures this Visit: None Allergies/Adverse Reactions: Allergies Allergy/AdvReac Type Severity Reaction Status Date / Time No Known Allergies Allergy Verified 11/29/15 09:51 - Final Diagnosis (1) Congestive heart failure Problems: improved. We'll monitor weight.Family does not want to get an ECHO at this time. (2) Elevated troponin Problems: Has improved, probable small AL, will start with ASA and betablocker. (3) Urinary tract infection Problems: Improved with antibiotics (4) Pedal edema Problems: improved (5) open wound legs without complication Problems: bilateral improved with decreased edema
== END 2016-10-20 12:30 | DRG 292 ==
LOC: ED 09:28 → SOUTH 11:35 → UNDOADMIN 11:35
PROVIDERS: ADMIT Family Medicine; ATTEND Family Medicine
DX: I50.9 Heart failure, unspecified (principal); N39.0 Urinary tract infection, site not specified; R60.0 Localized edema; S81.802A Unspecified open wound, left lower leg, initial encounter; S81.801A Unspecified open wound, right lower leg, initial encounter
CPT/HCPCS: 36415; 51701; 71010; 80048; 80053; 81002; 83880; 84484; 85025; 87040; 87088; 87186; 87400; 93005; A9270; J0456; J0744; J1650; J1940; J2060; J7050; 99222; 99232; 99238; S1016

== ENCOUNTER 2016-12-17 10:24 | Inpatient (IN) | payer MEDICARE, BC ==
[2016-12-17] MEDS ORDERED: 0.9 % SODIUM CHLORIDE 1,000 ML IV ONE (10:48)
[2016-12-17 11:03] LABS: eGFR (African) > 60; eGFR (Non-African) 56
[2016-12-17 11:05] LABS: MEAN CORPUSCULAR HEMOGLOBIN 29.7 pg (28.0-34.0)
--- NOTE | 2016-12-17 11:36 | ED Physician Documentation ---
General Adult - HISTORIAN Historian: patient - HPI Stated Complaint: Fever- Shortness of Breath Chief Complaint: General Adult Further Comments: yes (86 year old male patient sent in from [place] for evaluation.) - ROS CONST: recent illness, weakness EYES/ENT: none CVS/RESP: cough. denies: chest pain, shortness of breath GI/: none MS/SKIN/LYMPH: none NEURO/PSYCH: denies: headache - PAST HX Past History: AMI, CHF Other History: other (Alzheimer's dementia, glaucoma) Immunizations: UTD Allergies/Adverse Reactions: Allergies Allergy/AdvReac Type Severity Reaction Status Date / Time No Known Allergies Allergy Verified 12/17/16 10:47 Home Medications: Ambulatory Orders Medication Instructions Recorded Aspirin [Elizabet] 81 mg PO DAILY 10/29/15 Memantine HCl 10 mg PO DAILY 10/29/15 Multivitamin [Zoo Chews] 1 each PO DAILY 10/29/15 Bisacodyl [Women's Gentle Laxative] 5 mg PO BID PRN 11/28/15 Dorzolamide HCl/Timolol Maleat 1 each TP BID 11/28/15 [Dorzolamide-Timolol Eye Drops] Magnesium Hydroxide [Milk of 30 ml PO D PRN 11/28/15 Magnesia] Acetaminophen [Tylenol] 650 mg PO Q4 PRN 10/17/16 Buspirone HCl [Buspar] 10 mg PO BID 10/17/16 Latanoprost [Xalatan] 1 drop OP AM 10/17/16 Mag Hydrox/Al Hydrox/Simeth 30 ml PO D PRN 10/17/16 [Mylanta] Melatonin [Melatin] 3 mg PO HS 10/17/16 Furosemide [Lasix] 40 mg PO DAILY #0 10/20/16 Potassium Chloride [Klor-Con M20] 20 meq PO D tablet.er 10/20/16 Megestrol Acetate [Megace] 80 mg PO DAILY 12/17/16 - SOCIAL HX Smoking History: non-smoker - FAMILY HX Family History: No - VITAL SIGNS Vital Signs: Vital Signs Temp Pulse Resp BP Pulse Ox 99 F 118 H 28 H 123/50 94 12/17/16 10:25 12/17/16 10:25 12/17/16 10:25 12/17/16 10:25 12/17/16 10:25 - REVIEWED ASSESSMENTS Nursing Assessment Reviewed: Yes Vitals Reviewed: Yes Progress - Progress Progress: CrCL 51 - will start levaquin 750mg IV qd. 1200 Call to Marilou ELAINE - will admit to floor with pneumonia. ED Results Lab/Radiology - Lab Results Lab Results: Lab Results 12/17/16 12/17/16 10:41 10:41 WBC 25.80 K/ul H K/ul (4.00-12.00) RBC 4.82 M/ul M/ul (3.90-5.20) Hgb 14.3 g/dL g/dL (12.0-18.0) Hct 44.3 % % (37.0-53.0) MCV 92.0 fl fl (80.0-100.0) MCH 29.7 pg pg (28.0-34.0) MCHC 32.3 g/dL g/dL (30.0-36.0) RDW 13.6 % % (11.3-14.3) Plt Count 425 K/mm3 H K/mm3 (130-400) Sodium 141 mmol/L mmol/L (136-145) Potassium 4.5 mmol/L mmol/L (3.5-5.0) Chloride 112 mmol/L H mmol/L (98-110) Carbon Dioxide 19 mmol/L L mmol/L (20-32) BUN 28 mg/dL H mg/dL (10-26) Creatinine 1.3 mg/dL mg/dL (0.4-1.5) Estimated Creat Clear 50 Est GFR ( Amer) > 60 (60 - ) Est GFR (Non-Af Amer) 56 L (60 - ) Glucose 255 mg/dL H mg/dL (70-99) Calcium 10.1 mg/dL mg/dL (8.5-10.5) Total Bilirubin 1.1 mg/dL mg/dL (0.2-1.2) AST 20 U/L U/L (0-41) ALT 18 U/L U/L (0-45) Alkaline Phosphatase 142 U/L H U/L (46-116) Total Protein 8.6 g/dL H g/dL (6.0-8.5) Albumin 4.3 g/dL g/dL (3.0-5.5) - Radiology Radiology Impressions: Comparison October 19, 2016 Technique: anterior /posterior portable upright Findings: The dens right upper lobe infiltrate is clear. Cardiomegaly and tortuous thoracic aorta/pelvis same. There is a new infiltrate in the left costophrenic angle. The patient is rotated to the right. Lung estrada are more hyperinflated. The left hemidiaphragm is elevated. Impression: Clearing of the right upper lobe infiltrate. New left costophrenic angle infiltrate Unchanged cardiomegaly Hyperinflation of lungs has developed - Orders Orders: ED Orders Category Date Time Status Continuous EKG monitoring Q30M Care 12/17/16 10:41 Active Continuous Pulse Oximetry Q30M Care 12/17/16 10:[address] Saline Lock/IV NOW Care 12/17/16 10:41 Active CHEST 1 VIEW [RAD] Stat Exams 12/17/16 10:41 Ordered BLOOD CULTURE Stat Lab 12/17/16 10:41 Ordered CBC/PLATELET/DIFF Routine Lab 12/17/16 10:41 Completed CMP Routine Lab 12/17/16 10:41 Completed UA W/MICRO IF INDICATED Stat Lab 12/17/16 10:48 Ordered 0.9 % Sodium Chloride [Normal Saline] 1,000 ml Med 12/17/16 10:48 Discontinued IV NOW Oxygen Daily Oxygen 12/17/16 10:45 Ordered General Adult Physical Exam - PHYSICAL EXAM GENERAL APPEARANCE: mild distress EENT: eye inspection normal, EFRAÍN, dry mucous membranes RESPIRATORY: no resp distress, chest non-tender, other (decreased bases) CVS: heart sounds normal, equal pulses, no murmur, no gallop, PMI nml, no JVD, no friction rub, tachycardia ABDOMEN: soft, no organomegaly, normal bowel sounds, no abdominal bruit, no distension BACK: normal inspection, no CVA tenderness SKIN: normal color, warm/dry, NR, INT, PAL, DR EXTREMITIES: non-tender, normal range of motion, no evidence of injury, no edema , J, 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 NEURO: CN's nml as tested (testing limited due to clinical condition), sensation nml, mood/affect nml, cognition normal (somnulent) Discharge Clincal Impression: retirement pneumonia, Dehydration Alzheimer disease Qualifiers: Alzheimer's disease onset: unspecified onset Dementia behavioral disturbance: without behavioral disturbance Qualified Code(s): G30.9 - Alzheimer's disease, unspecified; F02.80 - Dementia in other diseases classified elsewhere without behavioral disturbance Leukocytosis Qualifiers: Leukocytosis type: unspecified Qualified Code(s): D72.829 - Elevated white blood cell count, unspecified Home Medications: Ambulatory Orders Aspirin [Elizabet] 81 mg PO DAILY 10/29/15 Memantine HCl 10 mg PO DAILY 10/29/15 Multivitamin [Zoo Chews] 1 each PO DAILY 10/29/15 Bisacodyl [Women's Gentle Laxative] 5 mg PO BID PRN 11/28/15 Dorzolamide HCl/Timolol Maleat [Dorzolamide-Timolol Eye Drops] 1 each TP BID Magnesium Hydroxide [Milk of Magnesia] 30 ml PO D PRN 11/28/15 Acetaminophen [Tylenol] 650 mg PO Q4 PRN 10/17/16 Buspirone HCl [Buspar] 10 mg PO BID 10/17/16 Latanoprost [Xalatan] 1 drop OP AM 10/17/16 Mag Hydrox/Al Hydrox/Simeth [Mylanta] 30 ml PO D PRN 10/17/16 Melatonin [Melatin] 3 mg PO HS 10/17/16 Furosemide [Lasix] 40 mg PO DAILY #0 10/20/16 Potassium Chloride [Klor-Con M20] 20 meq PO D tablet.er 10/20/16 Megestrol Acetate [Megace] 80 mg PO DAILY 12/17/16 Condition: Stable Disposition: ADMITTED INPATIENT Decision to Admit: NO Decision Time: 12:06
[2016-12-17] MEDS ORDERED: LEVOFLOXACIN 250MG/D5W 50ML 250 MG in PREMIX BAG 1 BAG IV ONE (12:03)
[2016-12-17] MEDS ORDERED: LEVOFLOXACIN 500MG/D5W 100ML 500 MG in PREMIX BAG 1 BAG IV ONE (12:03)
[2016-12-17] MEDS ORDERED: LEVOFLOXACIN 250MG/D5W 50ML 50 ML IV ONE (12:11)
[2016-12-17] MEDS ORDERED: LEVOFLOXACIN 500MG/D5W 100ML 100 ML IV ONE (12:11)
--- NOTE | 2016-12-17 13:27 | History and Physical Report ---
History of Present Illnes - History of Present Illness Reason for Visit: Pneumonia and dehydration History of Present Illness: 86 year old male was brought to the emergency room from [facility] this morning due to shortness of breath requiring oxygen, and for a fever of 101 degrees Fahrenheit. The [facility] nurse noted they have had several cases of the flu and pneumonia. He states he is not in any pain, and is not feeling short of breath. He has a history of Dementia and it is unclear how much of the conversation he is understanding, but he is able to answer yes or no questions with appropriate responses. He states he currently is not feeling poorly but that he is very tired. He denies having any questions or concerns at the time of interview. 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 ) Review of Systems - Review of Systems Constitutional: Fever Eyes: negative: pain ENT: negative: Ear Pain, Mouth Pain, Throat Pain Respiratory: negative: Cough, Shortness of Breath (on 2L oxygen) Cardiovascular: negative: Chest Pain Gastrointestinal: negative: Vomiting, Abdominal Pain Genitourinary: Deferred Musculoskeletal: negative: Back Pain, Leg Pain Skin: Deferred Neurological: negative: Deferred - Medications/Allergies Allergies/Adverse Reactions: Allergies Allergy/AdvReac Type Severity Reaction Status Date / Time No Known Allergies Allergy Verified 12/17/16 10:47 Home Medications: Home Medications Megestrol Acetate [Megace] 80 mg PO DAILY 12/17/16 Current Inpatient Medications: Current Inpatient Medications Dextrose/Sodium Chloride (D51/2ns) 1,000 mls @ 75 mls/hr IV Q10H SULMA Levofloxacin/Dextrose 250 mg/ (PREMIX BAG) 50 mls @ 50 mls/hr IV DAILY SULMA Stop: 01/01/17 08:59 Levofloxacin/Dextrose 500 mg/ (PREMIX BAG) 100 mls @ 100 mls/hr IV DAILY SULMA Stop: 01/01/17 08:59 Exam - Exam Vital Signs: Vital Signs (72 hours) 12/17/16 12:20 Pulse Rate [ 92 H Pulse ox] Respiratory 20 Rate Blood Pressure 130/68 [Right Arm] O2 Sat by Pulse 96 Oximetry General: Alert, Cooperative, Thin HEENT: Atraumatic, EOMI, Mouth Mucous membr. moist/[place], Hearing Grossly Normal. No: Pharyngeal Erythema, Tonsillar Exudate Neck: Normal Range of Motion Lungs: Speaks full Sentences, Wheezes (lower left), Decreased Air Movement. No : Clear to auscultation, Respiratory Distress Cardiovascular: Regular rate, No murmurs. No: Murmur Abdomen: Normal bowel sounds, Soft, No tenderness. No: Distended, Rigid Integumentary: Normal, Decreased Turgor (mild). No: Normal Turgor Extremities: No clubbing, No cyanosis, No edema, Normal pulses, No tenderness/ swelling Neurological: Normal speech, Sensation intact, Generalized Weakness Psych/Mental Status: Mood NL - Laboratory Results Laboratory Results: Laboratory Results - last 24 hr 12/17/16 12/17/16 10:41 10:41 WBC 25.80 H RBC 4.82 Hgb 14.3 Hct 44.3 MCV 92.0 MCH 29.7 MCHC 32.3 RDW 13.6 Plt Count 425 H Sodium 141 Potassium 4.5 Chloride 112 H Carbon Dioxide 19 L BUN 28 H Creatinine 1.3 Estimated Creat Clear 50 Est GFR ( Amer) > 60 Est GFR (Non-Af Amer) 56 L Glucose 255 H Calcium 10.1 Total Bilirubin 1.1 AST 20 ALT 18 Alkaline Phosphatase 142 H Total Protein 8.6 H Albumin 4.3 Assessment/Plan - Assessment/Plan (1) longterm pneumonia Status: Acute Current Visit: Yes Assessment: Elevated white blood cell count, fever, shortness of breath and confirmed infiltrate on chest x ray confirm diagnosis of pneumonia. Patient's oxygen saturation is normal on 2 liters of oxygen. The patient does not typically require oxygen. Plan: Iv Levaquin ordered. Tylenol ordered for fever as needed. Continue O2 monitoring and titrate as needed. (2) Dehydration Status: Acute Current Visit: Yes Assessment: Decreased skin turgor on exam. Labs show mild dehydration. Plan: 1 liter of fluids order by ER provider. Monitor for signs of edema with history of CHF. (3) Alzheimer disease Status: Acute Current Visit: Yes Qualifiers: Alzheimer's disease onset: unspecified onset Dementia behavioral disturbance: without behavioral disturbance Qualified Code(s): G30.9 - Alzheimer's disease, unspecified; F02.80 - Dementia in other diseases classified elsewhere without behavioral disturbance Assessment: Patient is able to answer yes or no questions appropriately but it is unclear as to how much of a conversation he is able to understand. Plan: Continue home medications. Monitor for changes from baseline. VTE Assessment - RISK FACTOR SCORE VTE RISK FACTOR SCORES: AGE OVER 60 YEARS, ACUTE INFECTION OTHER THEN SEPSIS - RISK VTE MODERATE RISK: SCORE OF 2 (RISK PROXIMAL DVT 2-4%) PROPHYAXIS NEEDED
[2016-12-17] MEDS ORDERED: MAGNESIUM HYDROXIDE 400 MG/5 ML 30ML UDC PO PRN (13:34)
[2016-12-17] MEDS ORDERED: BISACODYL 5 MG TABLET.DR PO PRN (13:34)
[2016-12-17] MEDS ORDERED: MAG HYDROX/AL HYDROX/SIMETH 30 ML UDC PO PRN (13:34)
[2016-12-17] MEDS ORDERED: ACETAMINOPHEN 325 MG TABLET PO PRN (13:34)
[2016-12-17] MEDS: DEXTROSE 5 %-0.45 % NACL 1,000 ML IV SCH (13:46)
--- NOTE | 2016-12-17 13:47 | Diagnostic Imaging Report ---
DIXIE DEE (BRITTANI) - ER~ [facility] [address] [facility] [address] ~ ~ ~ ~ Report Submission Date: Dec 17, 2016 11:32:44 AM CDT Patient ~ Study Name: CINDY WORTHINGTON ~ Date: Dec 17, 2016 11:15:00 AM CDT ~ Modality Type: CR Gender: M ~ Description: CHEST : 32 ~ Institution: [facility] Physician: DIXIE DEE) - ER ~ ~ ~ ~ Ap portable upright radiographs of the chest Clinical history: Confusion short of breath Comparison October 19, 2016 Technique: anterior /posterior portable upright Findings: The dens right upper lobe infiltrate is clear. Cardiomegaly and tortuous thoracic aorta/pelvis same. There is a new infiltrate in the left costophrenic angle. The patient is rotated to the right. Lung estrada are more hyperinflated. The left hemidiaphragm is elevated. Impression: Clearing of the right upper lobe infiltrate. New left costophrenic angle infiltrate Unchanged cardiomegaly Hyperinflation of lungs has developed ~ Electronically signed on Dec 17, 2016 11:32:44 AM CDT by: Slava GANDHI
[2016-12-17 15:34] VITALS: BMI 24.4
[2016-12-17] MEDS: MELATONIN 3 MG TABLET PO SCH (20:47)
[2016-12-17] MEDS: BUSPIRONE HCL 5 MG TABLET PO SCH (20:47)
[2016-12-18] MEDS: DEXTROSE 5 %-0.45 % NACL 1,000 ML IV SCH (03:22)
[2016-12-18] MEDS ORDERED: FUROSEMIDE 40 MG TABLET PO ONE (05:34)
[2016-12-18 05:58] LABS: APPEARANCE,URINE CLOUDY (CLEAR); COLOR,URINE AMBER (YELLOW); OCCULT BLOOD,URINE TRACE-INTACT (NEGATIVE); PH URINE 5.5 (5.0 - 8.0)
[2016-12-18 06:35] LABS: BASOPHILS % 0.2 (0.0-1.5); EOSINOPHILS % 0.5 % (0.0-6.8); MEAN CORPUSCULAR HEMOGLOBIN 29.8 pg (28.0-34.0); MONOCYTES % 2.9 % (0.0-11.0); NEUTROPHILS # 25.3 # k/uL (1.4-7.7)
[2016-12-18 07:30] LABS: eGFR (African) > 60; eGFR (Non-African) > 60
--- NOTE | 2016-12-18 08:45 | Inpatient Progress Note ---
Subjective - Required Recertification Statement I anticipate X number of days because-include discharge plan: 2 days - Review of Systems Events since last encounter: Patient is responding some to verbal stimuli. Seems to be a little more lethargic then before. Patient has run a low grade fever, has a mild cough. Does not seem to be in any pain. Appetite has been fair. General: Denies: Chills Pulmonary: Dyspnea, Cough Cardiovascular: Denies: Chest Pain, Palpitations Gastrointestinal: Denies: Nausea, Vomiting, Abdominal Pain Objective - Exam Vitals and I&O: Vital Signs Temp 97.8 F 12/18/16 06:00 Pulse 119 H 12/18/16 07:00 Resp 22 12/18/16 06:00 BP 112/50 12/18/16 06:00 Pulse Ox 92 12/18/16 07:00 Intake & Output 12/17/16 12/17/16 12/18/16 11:59 23:59 11:59 Intake Total 1175 Balance 1175 Weight 81.647 kg Intake: IV 875 Right Wrist 875 Oral 300 Other: Voiding Method Incontinent # Voids 0 General: Cooperative. No: Oriented to Person, Oriented to Place, Oriented to Time Neck: Supple, No JVD Lungs: Normal air movement, Rales (RUL), Rhonchi (RUL). No: Wheezes Cardiovascular: Regular rate, Normal S1, Normal S2, No murmurs Abdomen: Normal bowel sounds, Soft, No tenderness Extremities: No edema Skin: Normal, [place], Warm Psych/Mental Status: No: Mental status NL (at baseline), Intact Judgment - Results Results: Laboratory Results WBC 28.20 K/ul (4.00-12.00) H 12/18/16 06:15 RBC 4.30 M/ul (3.90-5.20) 12/18/16 06:15 Hgb 12.8 g/dL (12.0-18.0) 12/18/16 06:15 Hct 39.6 % (37.0-53.0) 12/18/16 06:15 MCV 92.0 fl (80.0-100.0) 12/18/16 06:15 MCH 29.8 pg (28.0-34.0) 12/18/16 06:15 MCHC 32.4 g/dL (30.0-36.0) 12/18/16 06:15 RDW 13.8 % (11.3-14.3) 12/18/16 06:15 Plt Count 330 K/mm3 (130-400) 12/18/16 06:15 Neut % (Auto) 89.9 % (39.0-79.0) H 12/18/16 06:15 Lymph % (Auto) 5.8 % (16.0-50.0) L 12/18/16 06:15 [place] % (Auto) 2.9 % (0.0-11.0) 12/18/16 06:15 Eos % (Auto) 0.5 % (0.0-6.8) 12/18/16 06:15 Baso % (Auto) 0.2 (0.0-1.5) 12/18/16 06:15 Neut # 25.3 # k/uL (1.4-7.7) H 12/18/16 06:15 Lymph # 1.6 # k/uL (0.6-4.0) 12/18/16 06:15 [place] # 0.8 # k/uL (0.0-0.9) 12/18/16 06:15 Eos # 0.1 # k/uL (0.0-0.6) 12/18/16 06:15 Baso # 0.1 # k/uL (0.0-0.5) 12/18/16 06:15 Reactive Lymphs % 0.7 % (0.0-5.0) 12/18/16 06:15 Reactive Lymphs # 0.2 # k/uL (0.0-0.8) 12/18/16 06:15 Sodium 130 mmol/L (136-145) L 12/18/16 06:15 Potassium 3.7 mmol/L (3.5-5.0) 12/18/16 06:15 Chloride 106 mmol/L (98-110) 12/18/16 06:15 Carbon Dioxide 21 mmol/L (20-32) 12/18/16 06:15 BUN 25 mg/dL (10-26) 12/18/16 06:15 Creatinine 0.9 mg/dL (0.4-1.5) 12/18/16 06:15 Estimated Creat Clear 69 12/18/16 06:15 Est GFR ( Amer) > 60 (60-) 12/18/16 06:15 Est GFR (Non-Af Amer) > 60 (60-) 12/18/16 06:15 Glucose 164 mg/dL (70-99) H 12/18/16 06:15 Calcium 9.6 mg/dL (8.5-10.5) 12/18/16 06:15 Total Bilirubin 1.1 mg/dL (0.2-1.2) 12/17/16 10:41 AST 20 U/L (0-41) 12/17/16 10:41 ALT 18 U/L (0-45) 12/17/16 10:41 Alkaline Phosphatase 142 U/L (46-116) H 12/17/16 10:41 Total Protein 8.6 g/dL (6.0-8.5) H 12/17/16 10:41 Albumin 4.3 g/dL (3.0-5.5) 12/17/16 10:41 Urine Color Nohemi (YELLOW) 12/17/16 12:06 Urine Appearance Cloudy (CLEAR) 12/17/16 12:06 Urine pH 5.5 (5.0 - 8.0) 12/17/16 12:06 Ur Specific [place] 1.020 (1.010-1.030) 12/17/16 12:06 Urine Protein 1+ mg/dL (NEGATIVE) H 12/17/16 12:06 Urine Ketones Negative mg/dL (NEGATIVE) 12/17/16 12:06 Urine Occult Blood Trace-intact (NEGATIVE) H 12/17/16 12:06 Urine Nitrite Negative (NEGATIVE) 12/17/16 12:06 Urine Bilirubin 1+ (NEGATIVE) H 12/17/16 12:06 Urine Urobilinogen 4.0 Eu (0.2-1.0) H 12/17/16 12:06 Ur Leukocyte Esterase Negative (NEGATIVE) 12/17/16 12:06 Urine Glucose Negative mg/dL (NEGATIVE) 12/17/16 12:06 Assessment/Plan - Assessment/Plan (1) Dementia Status: Chronic Current Visit: Yes Qualifiers: Dementia type: Alzheimer's disease Assessment: stable (2) Dehydration Status: Acute Current Visit: Yes Assessment: BUN and Creatinine improved today. Will switch to normal saline. Watch for CHF symptoms. Recheck labs in AM (3) Hyperglycemia Status: Acute Current Visit: Yes
[2016-12-18] MEDS ORDERED: POTASSIUM CHLORIDE 20 MEQ TABLET.ER PO SCH (09:00)
[2016-12-18] MEDS ORDERED: FUROSEMIDE 40 MG TABLET PO SCH (09:00)
[2016-12-18] MEDS ORDERED: LEVOFLOXACIN 250MG/D5W 50ML 50 ML IV ONE (09:13)
[2016-12-18] MEDS ORDERED: LEVOFLOXACIN 500MG/D5W 100ML 100 ML IV ONE (09:13)
[2016-12-18] MEDS: LATANOPROST 0.005% OPTH DROP OP SCH (09:17)
[2016-12-18] MEDS: DORZOLAMINE HCL/TIMOLOL MALEAT OPTH DROP OP SCH ×3 (09:17→19:56)
[2016-12-18] MEDS: BUSPIRONE HCL 5 MG TABLET PO SCH ×2 (09:18→19:56)
[2016-12-18] MEDS: ASPIRIN 81 MG CHEW TAB PO SCH (09:20)
[2016-12-18] MEDS: MEMANTINE HCL 10 MG TABLET PO SCH ×2 (09:20→09:21)
[2016-12-18] MEDS: LEVOFLOXACIN 500MG/D5W 100ML 500 MG in PREMIX BAG 1 BAG IV SCH (09:27)
[2016-12-18] MEDS: ENOXAPARIN SODIUM 30 MG/0.3 ML DISP.SYRIN SQ SCH (09:32)
[2016-12-18] MEDS: 0.9 % SODIUM CHLORIDE 1,000 ML IV SCH (10:09)
[2016-12-18] MEDS: LEVOFLOXACIN 250MG/D5W 50ML 250 MG in PREMIX BAG 1 BAG IV SCH (10:47)
[2016-12-18] MEDS: AZITHROMYCIN 500 MG in 0.9 % SODIUM CHLORIDE 250 ML IV SCH (11:39)
[2016-12-18] MEDS: ALBUTEROL SULFATE 2.5 MG/3 ML AMPUL.NEB NEB SCH ×2 (12:15→17:09)
[2016-12-18 13:00] LABS: MONOCYTES % 2 % (0-11); SEGMENTED NEUTROPHILS % 89 % (39-79)
[2016-12-18] MEDS: MELATONIN 3 MG TABLET PO SCH (19:56)
[2016-12-19] MEDS: ALBUTEROL SULFATE 2.5 MG/3 ML AMPUL.NEB NEB SCH ×4 (00:15→16:21)
[2016-12-19 06:25] LABS: BASOPHILS % 0.1 (0.0-1.5); EOSINOPHILS % 0.4 % (0.0-6.8); MEAN CORPUSCULAR HEMOGLOBIN 29.5 pg (28.0-34.0); MEAN CORPUSCULAR VOLUME 95.5 fl (80.0-100.0); MONOCYTES % 2.4 % (0.0-11.0); NEUTROPHILS # 21.4 # k/uL (1.4-7.7)
[2016-12-19 06:45] LABS: eGFR (African) > 60; eGFR (Non-African) > 60
[2016-12-19] MEDS ORDERED: POTASSIUM CHLORIDE 20 MEQ TABLET.ER PO SCH (08:33)
[2016-12-19] MEDS: 0.9 % SODIUM CHLORIDE 1,000 ML IV SCH (08:34)
--- NOTE | 2016-12-19 09:24 | Inpatient Progress Note ---
Subjective - Required Recertification Statement I anticipate X number of days because-include discharge plan: 2 - Review of Systems General: Chills Pulmonary: Dyspnea, Cough Cardiovascular: Denies: Chest Pain Gastrointestinal: Denies: Nausea, Vomiting, Abdominal Pain, Diarrhea, Constipation Objective - Exam Vitals and I&O: Vital Signs Temp 98.8 F 12/19/16 05:58 Pulse 91 H 12/19/16 05:58 Resp 16 12/19/16 02:00 BP 122/68 12/19/16 05:58 Pulse Ox 96 12/19/16 05:58 Intake & Output 12/18/16 12/18/16 12/19/16 11:59 23:59 11:59 Intake Total 300 480 Balance 300 480 Weight 81.647 kg Intake: Oral 300 480 Other: Voiding Method Incontinent Incontinent General: Oriented to Person, Cooperative, Mild distress. No: Oriented to Place , Oriented to Time Lungs: Speaks full Sentences, Wheezes (bilateral), Rhonchi Cardiovascular: Regular rate, Normal S1, Normal S2, No murmurs Abdomen: Normal bowel sounds, Soft, No tenderness, No hepatospenomegaly Extremities: No edema Skin: Normal, [place], Warm Psych/Mental Status: No: Mental status NL (confused, answering questions some better), Mood NL, Appropriate Affect - Results Results: Laboratory Results WBC 24.20 K/ul (4.00-12.00) H 12/19/16 06:15 RBC 4.56 M/ul (3.90-5.20) 12/19/16 06:15 Hgb 13.4 g/dL (12.0-18.0) 12/19/16 06:15 Hct 43.6 % (37.0-53.0) 12/19/16 06:15 MCV 95.5 fl (80.0-100.0) 12/19/16 06:15 MCH 29.5 pg (28.0-34.0) 12/19/16 06:15 MCHC 30.8 g/dL (30.0-36.0) 12/19/16 06:15 RDW 13.5 % (11.3-14.3) 12/19/16 06:15 Plt Count 381 K/mm3 (130-400) 12/19/16 06:15 Neut % (Auto) 88.4 % (39.0-79.0) H 12/19/16 06:15 Lymph % (Auto) 7.9 % (16.0-50.0) L 12/19/16 06:15 [place] % (Auto) 2.4 % (0.0-11.0) 12/19/16 06:15 Eos % (Auto) 0.4 % (0.0-6.8) 12/19/16 06:15 Baso % (Auto) 0.1 (0.0-1.5) 12/19/16 06:15 Neut # 21.4 # k/uL (1.4-7.7) H 12/19/16 06:15 Lymph # 1.9 # k/uL (0.6-4.0) 12/19/16 06:15 [place] # 0.6 # k/uL (0.0-0.9) 12/19/16 06:15 Eos # 0.1 # k/uL (0.0-0.6) 12/19/16 06:15 Baso # 0.0 # k/uL (0.0-0.5) 12/19/16 06:15 Seg Neutrophils % 89 % (39-79) H 12/17/16 10:41 Band Neutrophils % 3 % (0-12) 12/17/16 10:41 Lymphocytes % 6 % (16-50) L 12/17/16 10:41 Reactive Lymphs % 0.8 % (0.0-5.0) 12/19/16 06:15 Monocytes % 2 % (0-11) 12/17/16 10:41 Reactive Lymphs # 0.2 # k/uL (0.0-0.8) 12/19/16 06:15 Plt Morphology Comment Normal (NORMAL) 12/17/16 10:41 RBC Morph Comment Normal (NORMAL) 12/17/16 10:41 Sodium 140 mmol/L (136-145) 12/19/16 06:15 Potassium 3.4 mmol/L (3.5-5.0) L 12/19/16 06:15 Chloride 102 mmol/L (98-110) 12/19/16 06:15 Carbon Dioxide 26 mmol/L (20-32) 12/19/16 06:15 BUN 19 mg/dL (10-26) 12/19/16 06:15 Creatinine 0.7 mg/dL (0.4-1.5) 12/19/16 06:15 Estimated Creat Clear 89 12/19/16 06:15 Est GFR ( Amer) > 60 (60-) 12/19/16 06:15 Est GFR (Non-Af Amer) > 60 (60-) 12/19/16 06:15 Glucose 138 mg/dL (70-99) H 12/19/16 06:15 Calcium 10.4 mg/dL (8.5-10.5) 12/19/16 06:15 Total Bilirubin 1.1 mg/dL (0.2-1.2) 12/17/16 10:41 AST 20 U/L (0-41) 12/17/16 10:41 ALT 18 U/L (0-45) 12/17/16 10:41 Alkaline Phosphatase 142 U/L (46-116) H 12/17/16 10:41 Total Protein 8.6 g/dL (6.0-8.5) H 12/17/16 10:41 Albumin 4.3 g/dL (3.0-5.5) 12/17/16 10:41 Urine Color Nohemi (YELLOW) 12/17/16 12:06 Urine Appearance Cloudy (CLEAR) 12/17/16 12:06 Urine pH 5.5 (5.0 - 8.0) 12/17/16 12:06 Ur Specific [place] 1.020 (1.010-1.030) 12/17/16 12:06 Urine Protein 1+ mg/dL (NEGATIVE) H 12/17/16 12:06 Urine Ketones Negative mg/dL (NEGATIVE) 12/17/16 12:06 Urine Occult Blood Trace-intact (NEGATIVE) H 12/17/16 12:06 Urine Nitrite Negative (NEGATIVE) 12/17/16 12:06 Urine Bilirubin 1+ (NEGATIVE) H 12/17/16 12:06 Urine Urobilinogen 4.0 Eu (0.2-1.0) H 12/17/16 12:06 Ur Leukocyte Esterase Negative (NEGATIVE) 12/17/16 12:06 Urine Glucose Negative mg/dL (NEGATIVE) 12/17/16 12:06 Assessment/Plan - Assessment/Plan (1) Dementia Status: Chronic Qualifiers: Dementia type: Alzheimer's disease (2) Dehydration Status: Acute Assessment: improved, creatinine 0.6, BUN13 (3) Hyperglycemia Status: Acute Assessment: blood sugars in the mid 100 fasting (4) LLL pneumonia Status: Acute Qualifiers: Pneumonia type: due to unspecified organism Qualified Code(s): J18.1 - Lobar pneumonia, unspecified organism Assessment: appears to be improving, WBC is slowly coming down
[2016-12-19] MEDS: ASPIRIN 81 MG CHEW TAB PO SCH (09:25)
[2016-12-19] MEDS: MEMANTINE HCL 10 MG TABLET PO SCH (09:25)
[2016-12-19] MEDS: BUSPIRONE HCL 5 MG TABLET PO SCH ×2 (09:25→19:39)
[2016-12-19] MEDS: DORZOLAMINE HCL/TIMOLOL MALEAT OPTH DROP OP SCH ×2 (09:26→19:40)
[2016-12-19] MEDS: LATANOPROST 0.005% OPTH DROP OP SCH (09:26)
[2016-12-19] MEDS: ENOXAPARIN SODIUM 30 MG/0.3 ML DISP.SYRIN SQ SCH (09:26)
[2016-12-19] MEDS ORDERED: LEVOFLOXACIN 250MG/D5W 50ML 50 ML IV ONE (09:35)
[2016-12-19] MEDS ORDERED: LEVOFLOXACIN 500MG/D5W 100ML 100 ML IV ONE (09:35)
[2016-12-19] MEDS: LEVOFLOXACIN 250MG/D5W 50ML 250 MG in PREMIX BAG 1 BAG IV SCH (09:36)
[2016-12-19] MEDS: LEVOFLOXACIN 500MG/D5W 100ML 500 MG in PREMIX BAG 1 BAG IV SCH (09:36)
[2016-12-19] MEDS: AZITHROMYCIN 500 MG in 0.9 % SODIUM CHLORIDE 250 ML IV SCH (11:18)
[2016-12-19] MEDS ORDERED: SALINE FLUSH 10 ML DISP.SYRIN IVF ONE (11:50)
--- NOTE | 2016-12-19 12:30 | Diagnostic Imaging Report ---
ROSEMARY ALDANA [facility] [address] [facility].[address] [address] Report Submission Date: Dec 19, 2016 7:27:29 AM CDT Patient Study Name: CINDY WORTHINGTON Date: Dec 19, 2016 6:37:14 AM CDT Modality Type: CR Gender: M Description: CHEST : 32 Institution: [facility] Physician: ROSEMARY ALDANA Chest, AP portable History: Shortness of breath Findings: Left lower lobe infiltrate is present. There is no pneumothorax or large effusion. The heart is enlarged. Pulmonary vascularity is normal. Since 17 December 2016, left lower lobe infiltrate has increased. Impression: 1. Increasing left lower lobe infiltrate. 2. Cardiomegaly. Electronically signed on Dec 19, 2016 7:27:29 AM CDT by: Enzo GANDHI
[2016-12-19] MEDS: MELATONIN 3 MG TABLET PO SCH (19:39)
[2016-12-20] MEDS: ALBUTEROL SULFATE 2.5 MG/3 ML AMPUL.NEB NEB SCH ×4 (00:20→17:46)
[2016-12-20 06:28] LABS: BASOPHILS % 0.2 (0.0-1.5); EOSINOPHILS % 0.4 % (0.0-6.8); MEAN CORPUSCULAR HEMOGLOBIN 29.6 pg (28.0-34.0); MEAN CORPUSCULAR VOLUME 92.3 fl (80.0-100.0); MONOCYTES % 2.8 % (0.0-11.0); NEUTROPHILS # 16.2 # k/uL (1.4-7.7)
[2016-12-20 06:49] LABS: eGFR (African) > 60; eGFR (Non-African) > 60
--- NOTE | 2016-12-20 08:27 | Inpatient Progress Note ---
Subjective - Required Recertification Statement I anticipate X number of days because-include discharge plan: 1 day - Review of Systems Events since last encounter: Patient is more alert today. Voices no complaints. Breathing seems to be some better. Still has a cough. Appetite has been fair. General: Other. Denies: Chills, Night Sweats, Fatigue Pulmonary: Cough Cardiovascular: Denies: Chest Pain, Palpitations Gastrointestinal: Denies: Nausea, Vomiting, Abdominal Pain, Diarrhea, Constipation Objective - Exam Vitals and I&O: Vital Signs Temp 97.8 F 12/20/16 05:57 Pulse 117 H 12/20/16 06:00 Resp 16 12/20/16 05:57 BP 169/76 12/20/16 05:57 Pulse Ox 92 12/20/16 06:00 Intake & Output 12/19/16 12/19/16 12/20/16 11:59 23:59 11:59 Intake Total 480 Balance 480 Intake: Oral 480 Other: Voiding Method Diaper Diaper General: Alert, Oriented to Person, Cooperative. No: Oriented to Place, Oriented to Time Neck: Supple Lungs: Normal air movement, Rales (LLL). No: Respiratory Distress Cardiovascular: Regular rate, Normal S1, Normal S2, No murmurs Abdomen: Normal bowel sounds, Soft, No tenderness, No hepatospenomegaly, No masses Skin: Normal, [place], Warm, Dry Psych/Mental Status: No: Mental status NL, Mood NL, Appropriate Affect, Intact Judgment - Results Results: Laboratory Results WBC 19.40 K/ul (4.00-12.00) H 12/20/16 06:10 RBC 4.33 M/ul (3.90-5.20) 12/20/16 06:10 Hgb 12.8 g/dL (12.0-18.0) 12/20/16 06:10 Hct 40.0 % (37.0-53.0) 12/20/16 06:10 MCV 92.3 fl (80.0-100.0) 12/20/16 06:10 MCH 29.6 pg (28.0-34.0) 12/20/16 06:10 MCHC 32.1 g/dL (30.0-36.0) 12/20/16 06:10 RDW 13.7 % (11.3-14.3) 12/20/16 06:10 Plt Count 389 K/mm3 (130-400) 12/20/16 06:10 Neut % (Auto) 83.5 % (39.0-79.0) H 12/20/16 06:10 Lymph % (Auto) 12.2 % (16.0-50.0) L 12/20/16 06:10 Jones % (Auto) 2.8 % (0.0-11.0) 12/20/16 06:10 Eos % (Auto) 0.4 % (0.0-6.8) 12/20/16 06:10 Baso % (Auto) 0.2 (0.0-1.5) 12/20/16 06:10 Neut # 16.2 # k/uL (1.4-7.7) H 12/20/16 06:10 Lymph # 2.4 # k/uL (0.6-4.0) 12/20/16 06:10 Jones # 0.6 # k/uL (0.0-0.9) 12/20/16 06:10 Eos # 0.1 # k/uL (0.0-0.6) 12/20/16 06:10 Baso # 0.0 # k/uL (0.0-0.5) 12/20/16 06:10 Seg Neutrophils % 89 % (39-79) H 12/17/16 10:41 Band Neutrophils % 3 % (0-12) 12/17/16 10:41 Lymphocytes % 6 % (16-50) L 12/17/16 10:41 Reactive Lymphs % 0.8 % (0.0-5.0) 12/20/16 06:10 Monocytes % 2 % (0-11) 12/17/16 10:41 Reactive Lymphs # 0.2 # k/uL (0.0-0.8) 12/20/16 06:10 Plt Morphology Comment Normal (NORMAL) 12/17/16 10:41 RBC Morph Comment Normal (NORMAL) 12/17/16 10:41 Sodium 140 mmol/L (136-145) 12/20/16 06:10 Potassium 3.2 mmol/L (3.5-5.0) L 12/20/16 06:10 Chloride 106 mmol/L (98-110) 12/20/16 06:10 Carbon Dioxide 23 mmol/L (20-32) 12/20/16 06:10 BUN 16 mg/dL (10-26) 12/20/16 06:10 Creatinine 0.6 mg/dL (0.4-1.5) 12/20/16 06:10 Estimated Creat Clear 103 12/20/16 06:10 Est GFR ( Amer) > 60 (60-) 12/20/16 06:10 Est GFR (Non-Af Amer) > 60 (60-) 12/20/16 06:10 Glucose 147 mg/dL (70-99) H 12/20/16 06:10 Calcium 10.2 mg/dL (8.5-10.5) 12/20/16 06:10 Total Bilirubin 1.1 mg/dL (0.2-1.2) 12/17/16 10:41 AST 20 U/L (0-41) 12/17/16 10:41 ALT 18 U/L (0-45) 12/17/16 10:41 Alkaline Phosphatase 142 U/L (46-116) H 12/17/16 10:41 Total Protein 8.6 g/dL (6.0-8.5) H 12/17/16 10:41 Albumin 4.3 g/dL (3.0-5.5) 12/17/16 10:41 Urine Color Nohemi (YELLOW) 12/17/16 12:06 Urine Appearance Cloudy (CLEAR) 12/17/16 12:06 Urine pH 5.5 (5.0 - 8.0) 12/17/16 12:06 Ur Specific [place] 1.020 (1.010-1.030) 12/17/16 12:06 Urine Protein 1+ mg/dL (NEGATIVE) H 12/17/16 12:06 Urine Ketones Negative mg/dL (NEGATIVE) 12/17/16 12:06 Urine Occult Blood Trace-intact (NEGATIVE) H 12/17/16 12:06 Urine Nitrite Negative (NEGATIVE) 12/17/16 12:06 Urine Bilirubin 1+ (NEGATIVE) H 12/17/16 12:06 Urine Urobilinogen 4.0 Eu (0.2-1.0) H 12/17/16 12:06 Ur Leukocyte Esterase Negative (NEGATIVE) 12/17/16 12:06 Urine Glucose Negative mg/dL (NEGATIVE) 12/17/16 12:06 Assessment/Plan - Assessment/Plan (1) Dementia Status: Chronic Qualifiers: Dementia type: Alzheimer's disease Assessment: stable (2) Dehydration Status: Acute Assessment: resolved (3) Hyperglycemia Status: Acute Assessment: stable (4) LLL pneumonia Status: Acute Qualifiers: Pneumonia type: due to unspecified organism Qualified Code(s): J18.1 - Lobar pneumonia, unspecified organism Assessment: appears to be improving, will transfer back to [facility] in the
[2016-12-20] MEDS: BUSPIRONE HCL 5 MG TABLET PO SCH ×2 (08:56→20:18)
[2016-12-20] MEDS: ASPIRIN 81 MG CHEW TAB PO SCH (08:56)
[2016-12-20] MEDS: DORZOLAMINE HCL/TIMOLOL MALEAT OPTH DROP OP SCH ×2 (08:57→20:19)
[2016-12-20] MEDS: MEMANTINE HCL 10 MG TABLET PO SCH (08:59)
[2016-12-20] MEDS: LATANOPROST 0.005% OPTH DROP OP SCH (09:00)
[2016-12-20] MEDS: POTASSIUM CHLORIDE 20 MEQ TABLET.ER PO SCH ×2 (09:03→20:18)
[2016-12-20] MEDS ORDERED: LEVOFLOXACIN 500MG/D5W 100ML 100 ML IV ONE (09:07)
[2016-12-20] MEDS ORDERED: LEVOFLOXACIN 250MG/D5W 50ML 50 ML IV ONE (09:07)
[2016-12-20] MEDS: LEVOFLOXACIN 500MG/D5W 100ML 500 MG in PREMIX BAG 1 BAG IV SCH (09:09)
[2016-12-20] MEDS ORDERED: SALINE FLUSH 10 ML DISP.SYRIN IVF ONE ×3 (09:10→15:04)
[2016-12-20] MEDS: ENOXAPARIN SODIUM 30 MG/0.3 ML DISP.SYRIN SQ SCH (09:12)
[2016-12-20] MEDS: AZITHROMYCIN 500 MG in 0.9 % SODIUM CHLORIDE 250 ML IV SCH (10:36)
[2016-12-20] MEDS: LEVOFLOXACIN 250MG/D5W 50ML 250 MG in PREMIX BAG 1 BAG IV SCH (12:30)
[2016-12-20] MEDS ORDERED: 0.9 % SODIUM CHLORIDE 1,000 ML IV ONE ×4 (18:25→18:27)
[2016-12-20] MEDS: 0.9 % SODIUM CHLORIDE 1,000 ML IV SCH (18:42)
[2016-12-20] MEDS ORDERED: METOPROLOL TARTRATE 50 MG TABLET ONE (20:15)
[2016-12-20] MEDS: MELATONIN 3 MG TABLET PO SCH (20:18)
[2016-12-20] MEDS: METOPROLOL TARTRATE 50 MG TABLET PO SCH (20:18)
[2016-12-21] MEDS: ALBUTEROL SULFATE 2.5 MG/3 ML AMPUL.NEB NEB SCH ×3 (00:32→12:10)
[2016-12-21] MEDS ORDERED: METOPROLOL TARTRATE 50 MG TABLET ONE (04:33)
[2016-12-21] MEDS ORDERED: 0.9 % SODIUM CHLORIDE 1,000 ML IV ONE (04:36)
[2016-12-21] MEDS ORDERED: SALINE FLUSH 10 ML DISP.SYRIN IVF ONE (04:48)
[2016-12-21] MEDS: 0.9 % SODIUM CHLORIDE 1,000 ML IV SCH (05:21)
[2016-12-21 06:31] LABS: BASOPHILS % 0.1 (0.0-1.5); EOSINOPHILS % 0.8 % (0.0-6.8); MEAN CORPUSCULAR HEMOGLOBIN 29.6 pg (28.0-34.0); MEAN CORPUSCULAR VOLUME 92.7 fl (80.0-100.0); NEUTROPHILS # 13.9 # k/uL (1.4-7.7)
[2016-12-21 06:49] LABS: eGFR (African) > 60; eGFR (Non-African) > 60
[2016-12-21] MEDS: BUSPIRONE HCL 5 MG TABLET PO SCH (08:54)
[2016-12-21] MEDS: METOPROLOL TARTRATE 50 MG TABLET PO SCH (08:54)
[2016-12-21] MEDS: ENOXAPARIN SODIUM 30 MG/0.3 ML DISP.SYRIN SQ SCH (08:54)
[2016-12-21] MEDS: ASPIRIN 81 MG CHEW TAB PO SCH (08:55)
[2016-12-21] MEDS: LATANOPROST 0.005% OPTH DROP OP SCH (08:55)
[2016-12-21] MEDS: MEMANTINE HCL 10 MG TABLET PO SCH (08:55)
[2016-12-21] MEDS: DORZOLAMINE HCL/TIMOLOL MALEAT OPTH DROP OP SCH (08:56)
[2016-12-21] MEDS: POTASSIUM CHLORIDE 20 MEQ TABLET.ER PO SCH (08:57)
[2016-12-21] MEDS ORDERED: LEVOFLOXACIN 500MG/D5W 100ML 100 ML IV ONE (09:04)
[2016-12-21] MEDS ORDERED: LEVOFLOXACIN 250MG/D5W 50ML 0 ML IV ONE (09:04)
[2016-12-21] MEDS: LEVOFLOXACIN 500MG/D5W 100ML 500 MG in PREMIX BAG 1 BAG IV SCH (09:06)
[2016-12-21] MEDS ORDERED: LEVOFLOXACIN 250MG/D5W 50ML 50 ML IV ONE (10:08)
[2016-12-21] MEDS: LEVOFLOXACIN 250MG/D5W 50ML 250 MG in PREMIX BAG 1 BAG IV SCH (10:10)
[2016-12-21] MEDS: AZITHROMYCIN 500 MG in 0.9 % SODIUM CHLORIDE 250 ML IV SCH (12:03)
[2016-12-21 13:08] VITALS: BP 125/59
--- NOTE | 2017-01-08 11:16 | Discharge Summary ---
Discharge Summary - Discharge Sumary History of Present Illness: 86 year old male was brought to the emergency room from [facility] this morning due to shortness of breath requiring oxygen, and for a fever of 101 degrees Fahrenheit. The [facility] nurse noted they have had several cases of the flu and pneumonia. He states he is not in any pain, and is not feeling short of breath. He has a history of Dementia and it is unclear how much of the conversation he is understanding, but he is able to answer yes or no questions with appropriate responses. He states he currently is not feeling poorly but that he is very tired. He denies having any questions or concerns at the time of interview. Condition at Discharge: Stable Home Medications: Ambulatory Orders Medication Instructions Recorded Aspirin [Elizabet] 81 mg PO DAILY 10/29/15 Memantine HCl 10 mg PO DAILY 10/29/15 Multivitamin [Zoo Chews] 1 each PO DAILY 10/29/15 Bisacodyl [Women's Gentle Laxative] 5 mg PO BID PRN 11/28/15 Dorzolamide HCl/Timolol Maleat 1 each TP BID 11/28/15 [Dorzolamide-Timolol Eye Drops] Magnesium Hydroxide [Milk of 30 ml PO D PRN 11/28/15 Magnesia] Acetaminophen [Tylenol] 650 mg PO Q4 PRN 10/17/16 Buspirone HCl [Buspar] 10 mg PO BID 10/17/16 Latanoprost [Xalatan] 1 drop OP AM 10/17/16 Mag Hydrox/Al Hydrox/Simeth 30 ml PO D PRN 10/17/16 [Mylanta] Melatonin [Melatin] 3 mg PO HS 10/17/16 Furosemide [Lasix] 40 mg PO DAILY #0 10/20/16 Potassium Chloride [Klor-Con M20] 20 meq PO D tablet.er 10/20/16 Megestrol Acetate [Megace] 80 mg PO DAILY 12/17/16 Azithromycin [Zithromax] 250 mg PO DAILY #4 tablet 12/21/16 Levofloxacin [Levaquin] 750 mg PO D #7 tablet 12/21/16 Consultations this Visit: None Procedures this Visit: None Allergies/Adverse Reactions: Allergies Allergy/AdvReac Type Severity Reaction Status Date / Time No Known Allergies Allergy Verified 12/17/16 10:47 Discharge Summary: Patient did have a right upper lobe pneumonia. Prior to his hospitalization. This appeared to have cleared on initial x-ray but there was an infiltrate in the left lower lobe. Patient was started on Levaquin and azithromycin antibiotics. Patient was started on high flow nebulization treatments. Patient was felt to be dehydrated and was started on normal saline for rehydration. This did resolve during his hospitalization. Patient does have dementia. Patient's mental status remains borderline. First, patient was confused and was not responding well to verbal stimuli. Patient's mental status did improve during his hospitalization. Patient did have elevated fasting blood sugars in the 130 to 140 range. Patient has not had any previous history of hyperglycemia. At the time of dismissal patient was eating better. It was felt that patient could be managed as an outpatient at [facility]. Patient was subsequently discharged in stable condition.
== END 2016-12-21 14:20 | DRG 195 ==
LOC: ED 10:24 → SOUTH 12:08
PROVIDERS: ADMIT Family Medicine; ATTEND Family Medicine
DX: J18.9 Pneumonia, unspecified organism (principal); E86.0 Dehydration; F03.90 Unspecified dementia, unspecified severity, without behavioral disturbance, psychotic disturbance, mood disturbance, and anxiety; R73.9 Hyperglycemia, unspecified
CPT/HCPCS: 36415; 51701; 71010; 80048; 80053; 81002; 85025; 87040; 93005; 94640; 94760; 97162; 97530; 99283; 99284; A9270; J0456; J1650; J1956; J7030; J7050; 99222; 99232; 99238; S1016; S5010